=== PATIENT | female | born 1965 | race Caucasian/White ===

== ENCOUNTER 2016-06-23 07:16 | Day surgery (SDCO) | payer OTHER ==
[2016-06-23 07:57] LABS: HCT 36.8 % (37.0-47.0); HGB 12.4 g/dl (12.5-16.0); MCH 32.2 pg (25.0-31.0); MCHC 33.7 g/dL (32.0-36.0); MCV 95.6 fL (78.0-100.0); MPV 10.1 fL (6.0-9.5); RBC 3.85 M/uL (4.20-5.40); RDW 12.5 % (11.5-14.0); WBC 5.6 K/uL (4.0-10.5)
[2016-06-23 08:14] LABS: CREATININE 0.6 mg/dL (0.5-1.0); POTASSIUM 3.7 mmol/L (3.5-5.1)
[2016-06-24 06:26] LABS: HCT 31.5 % (37.0-47.0); HGB 10.4 g/dl (12.5-16.0); MCH 32.1 pg (25.0-31.0); MCV 97.2 fL (78.0-100.0); MPV 10.8 fL (6.0-9.5); RBC 3.24 M/uL (4.20-5.40); RDW 12.9 % (11.5-14.0); WBC 9.1 K/uL (4.0-10.5)
[2016-06-24] MEDS ORDERED: TOPROL XL 50 MG50 MG PO (13:49)
[2016-06-24] MEDS ORDERED: QVAR8.7 G1 INH (13:56)
[2016-06-24] MEDS ORDERED: CLARITIN10 MG PO (13:56)
[2016-06-24] MEDS ORDERED: ASPIRIN CHEWABL81 MG PO (13:57)
[2016-06-24] MEDS ORDERED: VITAMIN B-121000 MC1 PO (13:57)
[2016-06-24] MEDS ORDERED: SINGULAIR10 MG PO (13:59)
[2016-06-24] MEDS ORDERED: VITAMIN D1000 UNI1 PO (14:07)
[2016-06-24] MEDS ORDERED: XOPENEX INH (14:08)
[2016-06-24] MEDS ORDERED: BACLOFEN 10MG T10 MG PO (14:10)
[2016-06-24] MEDS ORDERED: COLACE100 MG PO (14:11)
[2016-06-24] MEDS ORDERED: PERCOCET 5/3251 TAB PO (14:11)
== END 2016-06-24 11:21 | disposition home or self-care (01) ==
LOC: FAS 07:16 → FMS 12:20
PROVIDERS: Anesthesiology; ADMIT Obstetrics & Gynecology
DX: N80.0 Endometriosis of uterus (principal); N72 Inflammatory disease of cervix uteri; I10 Essential (primary) hypertension; I48.0 Paroxysmal atrial fibrillation; Z88.1 Allergy status to other antibiotic agents
CPT/HCPCS: 36415; 80048; 84703; 86850; 86900; 86901; 88307; 93005; 94010; 94640; 94760; 94762; C9113; G0378; J1170; J1885; J2270; J2405; J2704; J2710; J3010

== ENCOUNTER 2016-06-30 07:56 | Inpatient (IN) | payer OTHER ==
[~2016-06-30 07:56] MED LIST: ASPIRIN CHEWABL81 MG PO; BACLOFEN 10MG T10 MG PO; CLARITIN10 MG PO; COLACE100 MG PO; PERCOCET 5/3251 TAB PO; QVAR8.7 G1 INH; SINGULAIR10 MG PO; TOPROL XL 50 MG50 MG PO; VITAMIN B-121000 MC1 PO; VITAMIN D1000 UNI1 PO; XOPENEX INH
[2016-06-30 08:50] LABS: BASOPHIL 0.2 % (0-2); HCT 40.5 % (37.0-47.0); HGB 13.8 g/dl (12.5-16.0); LYMPHOCYTE 17.8 % (15-48); MCH 32.4 pg (25.0-31.0); MCHC 34.1 g/dL (32.0-36.0); MCV 95.1 fL (78.0-100.0); MONOCYTE 11.2 % (0-12); MPV 10.3 fL (6.0-9.5); NEUTROPHIL 66.8 % (41-80); PLT 282 K/uL (150-400); RBC 4.26 M/uL (4.20-5.40); RDW 12.3 % (11.5-14.0); WBC 13.9 K/uL (4.0-10.5)
[2016-06-30 09:23] LABS: LACTIC ACID 1.9 mmol/L (0.5-2.2)
[2016-06-30 09:27] LABS: ALBUMIN 4.5 g/dL (3.5-5.0); BILIRUBIN - TOTAL 0.8 mg/dL (0.1-1.0); CREATININE 0.7 mg/dL (0.5-1.0); GLOBULIN (CALCULATION) 2.8 g/dL (2.2-4.2); POTASSIUM 4.1 mmol/L (3.5-5.1); TOTAL PROTEIN 7.3 g/dL (6.4-8.3)
[2016-06-30 11:11] LABS: BILIRUBIN NEGATIVE (NEGATIVE); BLOOD 2+ Ery/uL (NEGATIVE); CLARITY CLEAR (CLEAR); COLOR YELLOW (YELLOW); GLUCOSE (U) NORMAL (NORMAL); KETONE (U) NEGATIVE (NEGATIVE); LEUKOCYTES TRACE Leu/uL (NEGATIVE); NITRITE NEGATIVE (NEGATIVE); PROTEIN TRACE (LOW) mg/dL (NEGATIVE); UROBILINOGEN 0.2 mg/dL (0.2-1.0)
[2016-06-30 11:16] LABS: BACTERIA TRACE; MUCOUS TRACE; URINARY RBC RARE; URINARY WBC RARE
[2016-07-01 08:37] LABS: BASOPHIL 0.2 % (0-2); EOSINOPHIL 1.9 % (0-5); HCT 37.3 % (37.0-47.0); HGB 12.7 g/dl (12.5-16.0); LYMPHOCYTE 6.8 % (15-48); MCH 32.4 pg (25.0-31.0); MCV 95.2 fL (78.0-100.0); MONOCYTE 14.9 % (0-12); MPV 9.8 fL (6.0-9.5); NEUTROPHIL 76.2 % (41-80); PLT 254 K/uL (150-400); RBC 3.92 M/uL (4.20-5.40); RDW 12.9 % (11.5-14.0)
[2016-07-01 08:39] LABS: WBC 19.6 K/uL (4.0-10.5)
[2016-07-01 08:51] LABS: BILIRUBIN - TOTAL 0.8 mg/dL (0.1-1.0); CREATININE 0.7 mg/dL (0.5-1.0); GLOBULIN (CALCULATION) 2.5 g/dL (2.2-4.2); MAGNESIUM 1.7 mg/dL (1.40-2.10); TOTAL PROTEIN 5.5 g/dL (6.4-8.3)
[2016-07-02 04:43] LABS: BASOPHIL 0.1 % (0-2); EOSINOPHIL 3.8 % (0-5); HCT 31.6 % (37.0-47.0); HGB 10.6 g/dl (12.5-16.0); LYMPHOCYTE 7.3 % (15-48); MCH 32.2 pg (25.0-31.0); MCHC 33.5 g/dL (32.0-36.0); MPV 9.7 fL (6.0-9.5); NEUTROPHIL 74.8 % (41-80); PLT 202 K/uL (150-400); RBC 3.29 M/uL (4.20-5.40); RDW 12.8 % (11.5-14.0); WBC 17.1 K/uL (4.0-10.5)
[2016-07-02 05:02] LABS: CREATININE 0.7 mg/dL (0.5-1.0); MAGNESIUM 1.76 mg/dL (1.40-2.10); POTASSIUM 3.8 mmol/L (3.5-5.1)
[2016-07-03 04:33] LABS: BASOPHIL 0.1 % (0-2); EOSINOPHIL 4.9 % (0-5); HCT 31.9 % (37.0-47.0); HGB 10.7 g/dl (12.5-16.0); LYMPHOCYTE 10.9 % (15-48); MCH 32.2 pg (25.0-31.0); MCHC 33.5 g/dL (32.0-36.0); MCV 96.1 fL (78.0-100.0); MONOCYTE 11.9 % (0-12); MPV 9.8 fL (6.0-9.5); NEUTROPHIL 72.2 % (41-80); PLT 202 K/uL (150-400); RBC 3.32 M/uL (4.20-5.40); RDW 12.4 % (11.5-14.0); WBC 13.3 K/uL (4.0-10.5)
[2016-07-03 04:42] LABS: BILIRUBIN - TOTAL 0.6 mg/dL (0.1-1.0); CREATININE 0.5 mg/dL (0.5-1.0); GLOBULIN (CALCULATION) 1.8 g/dL (2.2-4.2); MAGNESIUM 1.7 mg/dL (1.40-2.10); POTASSIUM 3.2 mmol/L (3.5-5.1); TOTAL PROTEIN 4.8 g/dL (6.4-8.3)
[2016-07-04 05:53] LABS: BASOPHIL 0.2 % (0-2); EOSINOPHIL 7.4 % (0-5); HGB 10.5 g/dl (12.5-16.0); MCH 32.2 pg (25.0-31.0); MCHC 33.9 g/dL (32.0-36.0); MCV 95.1 fL (78.0-100.0); MONOCYTE 12.1 % (0-12); MPV 9.7 fL (6.0-9.5); NEUTROPHIL 65.3 % (41-80); PLT 224 K/uL (150-400); RBC 3.26 M/uL (4.20-5.40); RDW 12.2 % (11.5-14.0); WBC 9.9 K/uL (4.0-10.5)
[2016-07-04 06:13] LABS: CREATININE 0.4 mg/dL (0.5-1.0)
[2016-07-04] MEDS ORDERED: METRONIDAZOLE500 MG PO (12:47)
[2016-07-04] MEDS ORDERED: LEVAQUIN750 MG PO (12:47)
[2016-07-04] MEDS ORDERED: ZOFRAN4 MG PO (14:12)
== END 2016-07-04 12:59 | disposition home or self-care (01) | DRG 872 ==
LOC: FER 07:56 → FMS 12:59
PROVIDERS: Emergency Medicine; ADMIT Internal Medicine
DX: A41.9 Sepsis, unspecified organism (principal); I48.0 Paroxysmal atrial fibrillation; K52.9 Noninfective gastroenteritis and colitis, unspecified; Z90.710 Acquired absence of both cervix and uterus; J45.909 Unspecified asthma, uncomplicated; Z88.1 Allergy status to other antibiotic agents; Z79.82 Long term (current) use of aspirin
CPT/HCPCS: 36415; 74020; 80048; 80053; 81001; 82550; 83605; 83690; 83735; 84484; 85025; 87040; 87045; 87046; 87076; 87088; 87186; 87205; 87324; 87328; 87337; 87449; G0378; J0295; J1170; J1885; J1956; J2270; J2405; J2543; Q9967

== ENCOUNTER 2016-07-08 12:24 | Emergency (ER) | payer OTHER ==
[~2016-07-08 12:24] MED LIST changes: +LEVAQUIN750 MG PO; +METRONIDAZOLE500 MG PO; +ZOFRAN4 MG PO
[2016-07-08 13:34] LABS: BILIRUBIN 2+ mg/dL (NEGATIVE); BLOOD 1+ Ery/uL (NEGATIVE); CLARITY CLEAR (CLEAR); COLOR AMBER (YELLOW); GLUCOSE (U) NORMAL (NORMAL); KETONE (U) 1+ (SMALL) mg/dL (NEGATIVE); LEUKOCYTES TRACE Leu/uL (NEGATIVE); NITRITE POSITIVE (NEGATIVE); PROTEIN 1+ mg/dL (NEGATIVE); SPECIFIC GRAVITY >=1.030 (1.001-1.030); UROBILINOGEN 0.2 mg/dL (0.2-1.0); pH 6.5 (5.0-9.0)
[2016-07-08 13:40] LABS: BACTERIA TRACE; MUCOUS LARGE
[2016-07-08 14:51] LABS: BASOPHIL 0.2 % (0-2); EOSINOPHIL 8.4 % (0-5); HGB 12.8 g/dl (12.5-16.0); LYMPHOCYTE 13.6 % (15-48); MCH 32.2 pg (25.0-31.0); MCHC 33.7 g/dL (32.0-36.0); MCV 95.7 fL (78.0-100.0); MONOCYTE 12.8 % (0-12); MPV 10.7 fL (6.0-9.5); PLT 411 K/uL (150-400); RBC 3.97 M/uL (4.20-5.40); RDW 12.7 % (11.5-14.0); WBC 12.3 K/uL (4.0-10.5)
[2016-07-08 15:36] LABS: ALBUMIN 4.2 g/dL (3.5-5.0); BILIRUBIN - TOTAL 0.2 mg/dL (0.1-1.0); CREATININE 0.6 mg/dL (0.5-1.0); GLOBULIN (CALCULATION) 3.2 g/dL (2.2-4.2); POTASSIUM 3.6 mmol/L (3.5-5.1); TOTAL PROTEIN 7.4 g/dL (6.4-8.3)
== END 2016-07-08 17:13 | disposition home or self-care (01) ==
LOC: FER 12:24
PROVIDERS: Internal Medicine
DX: N39.0 Urinary tract infection, site not specified (principal); K52.9 Noninfective gastroenteritis and colitis, unspecified; I10 Essential (primary) hypertension; J45.909 Unspecified asthma, uncomplicated; Z88.0 Allergy status to penicillin; Z79.82 Long term (current) use of aspirin; Z79.899 Other long term (current) drug therapy; Z79.51 Long term (current) use of inhaled steroids; Z90.710 Acquired absence of both cervix and uterus
CPT/HCPCS: 36415; 80053; 81001; 83690; 85025; J1170; J2405

== ENCOUNTER 2020-08-07 11:19 | Emergency (ER) | payer OTHER ==
[2020-08-07 12:42] LABS: BASOPHIL 0.3 % (0-2); EOSINOPHIL 1.8 % (0-5); HCT 37.2 % (37.0-47.0); HGB 12.3 g/dl (12.5-16.0); LYMPHOCYTE 14.5 % (15-48); MCH 32.9 pg (25.0-31.0); MCHC 33.1 g/dL (32.0-36.0); MCV 99.5 fL (78.0-100.0); MPV 10.3 fL (6.0-9.5); NEUTROPHIL 74.1 % (41-80); NRBC 0; PLT 214 K/uL (150-400); RBC 3.74 M/uL (4.20-5.40); WBC 9.8 K/uL (4.0-10.5)
[2020-08-07 12:49] LABS: PTT 30.7 SECONDS (22.2-34.7)
[2020-08-07 12:50] LABS: D-DIMER 0.96 ug/mLFEU (0.00-0.41); INR 0.97 (0.9-1.2); PROTHROMBIN TIME 12.2 SECONDS (11.4-13.6)
[2020-08-07 12:55] LABS: ALBUMIN 3.4 g/dL (3.4-5.0); BILIRUBIN - TOTAL 0.4 mg/dL (0.2-1.0); BUN/CREAT RATIO (CALC) 15.5 RATIO; CREATININE 0.84 mg/dL (0.51-0.95); GLOBULIN (CALCULATION) 2.9 g/dL; MAGNESIUM 1.9 mg/dL (1.8-2.4); POTASSIUM 3.6 mmol/L (3.5-5.1); TOTAL PROTEIN 6.3 g/dL (6.4-8.2)
[2020-08-07 13:04] LABS: PRO-BNP 123 pg/mL (<125)
[2020-08-07] MEDS ORDERED: NEURONTIN300 MG PO (15:03)
== END 2020-08-07 15:57 | disposition home or self-care (01) ==
LOC: FER 11:19
PROVIDERS: Emergency Medicine
DX: G50.0 Trigeminal neuralgia (principal); R06.02 Shortness of breath; I48.91 Unspecified atrial fibrillation; J45.909 Unspecified asthma, uncomplicated; Z88.1 Allergy status to other antibiotic agents; Z88.5 Allergy status to narcotic agent; Z20.822 Contact with and (suspected) exposure to COVID-19
CPT/HCPCS: 36415; 70450; 71275; 80053; 83735; 83880; 84484; 85025; 85379; 85610; 85730; Q9967; U0002

== ENCOUNTER 2020-12-11 10:46 | Inpatient (IN) | payer OTHER ==
[~2020-12-11] VITALS: Ht 172.7 cm; Wt 65.8 kg
[~2020-12-11 10:46] MED LIST changes: +NEURONTIN300 MG PO
[2020-12-11 12:03] LABS: BASOPHIL 0.2 % (0-2); EOSINOPHIL 0 % (0-5); HCT 42.7 % (37.0-47.0); HGB 13.9 g/dl (12.5-16.0); LYMPHOCYTE 14.2 % (15-48); MCH 30.8 pg (25.0-31.0); MCHC 32.6 g/dL (32.0-36.0); MCV 94.5 fL (78.0-100.0); MONOCYTE 7.2 % (0-12); MPV 11.2 fL (6.0-9.5); NEUTROPHIL 78.1 % (41-80); NRBC 0; PLT 100 K/uL (150-400); RBC 4.52 M/uL (4.20-5.40); RDW 12.9 % (11.5-14.0); WBC 6.3 K/uL (4.0-10.5)
[2020-12-11 12:44] LABS: LACTIC ACID 1.3 mmol/L (0.4-1.9)
[2020-12-11 12:53] LABS: IRON % SATURATION 9.4 %SAT (20-50)
[2020-12-11 12:56] LABS: PRO-BNP 82 pg/mL (<125)
[2020-12-11 12:59] LABS: ALBUMIN 3.4 g/dL (3.4-5.0); BILIRUBIN - TOTAL 0.3 mg/dL (0.2-1.0); BUN/CREAT RATIO (CALC) 20.6 RATIO; C-REACTIVE PROTEIN 5.3 mg/dL (<=0.90); CREATININE 0.97 mg/dL (0.51-0.95); GLOBULIN (CALCULATION) 4.3 g/dL; MAGNESIUM 2.2 mg/dL (1.8-2.4); POTASSIUM 3.7 mmol/L (3.5-5.1); TOTAL PROTEIN 7.7 g/dL (6.4-8.2)
[2020-12-11] MEDS ORDERED: ESTRACE1 MG PO (16:31)
[2020-12-11] MEDS ORDERED: TOPAMAX25 MG PO (16:33)
[2020-12-11] MEDS ORDERED: LIPITOR20 MG PO (16:33)
[2020-12-11] MEDS ORDERED: TRELEGY ELLIPT1 EACH INH (16:35)
[2020-12-11] MEDS ORDERED: 24HR ALLERGY REL5 MG PO (16:35)
[2020-12-11] MEDS ORDERED: FOSAMAX70 MG PO (16:36)
[2020-12-11] MEDS ORDERED: [UNRECOGNIZED DRUG - OTHER] PO (16:37)
[2020-12-11] MEDS ORDERED: OS-CAL500 MG PO (16:37)
[2020-12-11] MEDS ORDERED: COQ-10100 MG PO (16:39)
[2020-12-11] MEDS ORDERED: VITAMIN B-121000 MC1 PO (16:39)
[2020-12-11] MEDS ORDERED: VITAMIN E400 UNI2 PO (16:40)
[2020-12-11] MEDS ORDERED: VITAMIN D31250 MC1 PO (16:41)
[2020-12-11] MEDS ORDERED: MELATONIN5 M2 PO (16:42)
[2020-12-11] MEDS ORDERED: BIOTIN5 MG PO (16:42)
[2020-12-11] MEDS ORDERED: AZELASTINE205.5 MCG/ INH (16:43)
[2020-12-11] MEDS ORDERED: COLLAGEN POWDER TOP (16:43)
[2020-12-11] MEDS ORDERED: MIRALAX17 GM PO (16:44)
[2020-12-11] MEDS ORDERED: FLONASE ALLER15.8 ML INH (16:44)
[2020-12-11 23:28] LABS: BILIRUBIN NEGATIVE (NEGATIVE); BLOOD NEGATIVE Ery/uL (NEGATIVE); CLARITY CLEAR (CLEAR); COLOR YELLOW (YELLOW); GLUCOSE (U) NORMAL (NORMAL); LEUKOCYTES NEGATIVE Leu/uL (NEGATIVE); NITRITE NEGATIVE (NEGATIVE); PROTEIN TRACE (LOW) mg/dL (NEGATIVE); SPECIFIC GRAVITY 1.025 (1.001-1.030); UROBILINOGEN 0.2 mg/dL (0.2-1.0)
[2020-12-11 23:39] LABS: BACTERIA 1+; CALCIUM OXALATE CRYSTALS TRACE; URINARY WBC RARE
[2020-12-12 07:41] LABS: BASOPHIL 0 % (0-2); EOSINOPHIL 0 % (0-5); HCT 38.9 % (37.0-47.0); HGB 12.2 g/dl (12.5-16.0); LYMPHOCYTE 26.9 % (15-48); MCH 30.7 pg (25.0-31.0); MCHC 31.4 g/dL (32.0-36.0); MONOCYTE 14.9 % (0-12); MPV 11.1 fL (6.0-9.5); NEUTROPHIL 57.8 % (41-80); NRBC 0; PLT 84 K/uL (150-400); RBC 3.97 M/uL (4.20-5.40); RDW 12.5 % (11.5-14.0); WBC 2.5 K/uL (4.0-10.5)
[2020-12-12 07:48] LABS: ALBUMIN 2.4 g/dL (3.4-5.0); BILIRUBIN - TOTAL 0.2 mg/dL (0.2-1.0); BUN/CREAT RATIO (CALC) 26.8 RATIO; C-REACTIVE PROTEIN 3.9 mg/dL (<=0.90); CREATININE 0.56 mg/dL (0.51-0.95); GLOBULIN (CALCULATION) 3.6 g/dL; POTASSIUM 3.5 mmol/L (3.5-5.1)
[2020-12-12 13:40] LABS: HCT 38.5 % (37.0-47.0); HGB 12.4 g/dl (12.5-16.0); MCH 30.6 pg (25.0-31.0); MCHC 32.2 g/dL (32.0-36.0); MCV 95.1 fL (78.0-100.0); MPV 11.3 fL (6.0-9.5); RBC 4.05 M/uL (4.20-5.40); RDW 12.5 % (11.5-14.0)
[2020-12-12 13:48] LABS: WBC 6.6 K/uL (4.0-10.5)
[2020-12-13 06:13] LABS: BASOPHIL 0 % (0-2); EOSINOPHIL 0 % (0-5); HCT 34.9 % (37.0-47.0); HGB 11.5 g/dl (12.5-16.0); LYMPHOCYTE 16.5 % (15-48); MCH 30.7 pg (25.0-31.0); MCV 93.1 fL (78.0-100.0); MONOCYTE 11.4 % (0-12); MPV 10.9 fL (6.0-9.5); NEUTROPHIL 71.6 % (41-80); NRBC 0; PLT 109 K/uL (150-400); RBC 3.75 M/uL (4.20-5.40); RDW 12.5 % (11.5-14.0); WBC 5.9 K/uL (4.0-10.5)
[2020-12-13 07:05] LABS: BUN/CREAT RATIO (CALC) 24.1 RATIO; CREATININE 0.54 mg/dL (0.51-0.95); POTASSIUM 3.4 mmol/L (3.5-5.1)
[2020-12-14 06:24] LABS: BASOPHIL 0.1 % (0-2); EOSINOPHIL 0 % (0-5); HCT 38.7 % (37.0-47.0); HGB 12.8 g/dl (12.5-16.0); LYMPHOCYTE 11.9 % (15-48); MCHC 33.1 g/dL (32.0-36.0); MCV 93.7 fL (78.0-100.0); MPV 10.7 fL (6.0-9.5); NEUTROPHIL 79.5 % (41-80); NRBC 0; PLT 145 K/uL (150-400); RBC 4.13 M/uL (4.20-5.40); RDW 12.5 % (11.5-14.0); WBC 8.6 K/uL (4.0-10.5)
[2020-12-14 07:08] LABS: BUN/CREAT RATIO (CALC) 21.3 RATIO; CREATININE 0.47 mg/dL (0.51-0.95); MAGNESIUM 1.9 mg/dL (1.8-2.4); POTASSIUM 3.4 mmol/L (3.5-5.1)
[2020-12-15 04:37] LABS: BASOPHIL 0 % (0-2); EOSINOPHIL 0 % (0-5); HCT 36.1 % (37.0-47.0); HGB 12.1 g/dl (12.5-16.0); LYMPHOCYTE 4.5 % (15-48); MCH 30.7 pg (25.0-31.0); MCHC 33.5 g/dL (32.0-36.0); MCV 91.6 fL (78.0-100.0); MONOCYTE 7.1 % (0-12); MPV 10.7 fL (6.0-9.5); NEUTROPHIL 87.9 % (41-80); NRBC 0; PLT 135 K/uL (150-400); RBC 3.94 M/uL (4.20-5.40); RDW 12.3 % (11.5-14.0); WBC 5.8 K/uL (4.0-10.5)
[2020-12-15 04:57] LABS: CREATININE 0.41 mg/dL (0.51-0.95); POTASSIUM 3.6 mmol/L (3.5-5.1)
--- NOTE | 2020-12-16 13:43 | NUR ---
12/16/20 A referral was made to [facility] home 02. Report given to Gertrude, visiting housekeeper.
[2020-12-16] MEDS ORDERED: ATROVENT HFA12.9 GM INH (15:24)
[2020-12-16] MEDS ORDERED: DIAZEPAM 5MG TAB5 MG PO (15:24)
[2020-12-16] MEDS ORDERED: PROVENTIL HFA6.7 GM INH (15:24)
[2020-12-16] MEDS ORDERED: DEXAMETHASONE 2M2 MG PO (15:30)
== END 2020-12-16 16:05 | disposition home or self-care (01) | DRG 871 ==
LOC: FER 10:46 → FMS 14:55
PROVIDERS: Emergency Medicine; Nurse Practitioner; ADMIT Internal Medicine
PROC: XW033E5 Introduction of Remdesivir Anti-infective into Peripheral Vein, Percutaneous Approach, New Technology Group 5 (ICD-10-PCS; principal; 2020-12-11)
PROC: 8E0ZXY6 Isolation (ICD-10-PCS; 2020-12-11)
PROC: XW0DXM6 Introduction of Baricitinib into Mouth and Pharynx, External Approach, New Technology Group 6 (ICD-10-PCS; 2020-12-12)
DX: A41.89 Other specified sepsis (principal); U07.1 COVID-19; J96.01 Acute respiratory failure with hypoxia; J12.82 Pneumonia due to coronavirus disease 2019; M31.7 Microscopic polyangiitis; N17.9 Acute kidney failure, unspecified; F41.9 Anxiety disorder, unspecified; J45.909 Unspecified asthma, uncomplicated; I48.0 Paroxysmal atrial fibrillation; G54.0 Brachial plexus disorders; G50.0 Trigeminal neuralgia; M19.90 Unspecified osteoarthritis, unspecified site; Z90.710 Acquired absence of both cervix and uterus; Z90.89 Acquired absence of other organs; Z85.828 Personal history of other malignant neoplasm of skin; Z88.1 Allergy status to other antibiotic agents; Z88.6 Allergy status to analgesic agent; Z79.82 Long term (current) use of aspirin; Z79.51 Long term (current) use of inhaled steroids; Z79.899 Other long term (current) drug therapy
CPT/HCPCS: 36415; 36600; 71045; 80048; 80053; 81001; 82728; 82803; 83540; 83550; 83605; 83615; 83735; 83880; 84145; 84484; 85025; 86140; 93005; 94010; 94640; 94664; 94667; 94668; 94760; C9399; J0456; J0696; J1100; J1650; J1885; J2405; J7030; J7040; J7050; U0002

== ENCOUNTER 2020-12-17 05:08 | Inpatient (IN) | payer OTHER ==
[~2020-12-17] VITALS: Ht 165.1 cm; Wt 74.6 kg
[~2020-12-17 05:08] MED LIST changes: +24HR ALLERGY REL5 MG PO; +ATROVENT HFA12.9 GM INH; +AZELASTINE205.5 MCG/ INH; +BIOTIN5 MG PO; +COLLAGEN POWDER TOP; +COQ-10100 MG PO; +DEXAMETHASONE 2M2 MG PO; +DIAZEPAM 5MG TAB5 MG PO; +ESTRACE1 MG PO; +FLONASE ALLER15.8 ML INH; +FOSAMAX70 MG PO; +LIPITOR20 MG PO; +MELATONIN5 M2 PO; +MIRALAX17 GM PO; +OS-CAL500 MG PO; +PROVENTIL HFA6.7 GM INH; +TOPAMAX25 MG PO; +TRELEGY ELLIPT1 EACH INH; +VITAMIN D31250 MC1 PO; +VITAMIN E400 UNI2 PO; +[UNRECOGNIZED DRUG - OTHER] PO
[2020-12-17 05:55] LABS: BASOPHIL 0.1 % (0-2); EOSINOPHIL 0 % (0-5); HCT 38.4 % (37.0-47.0); HGB 13.3 g/dl (12.5-16.0); LYMPHOCYTE 2.6 % (15-48); MCH 30.9 pg (25.0-31.0); MCHC 34.6 g/dL (32.0-36.0); MCV 89.3 fL (78.0-100.0); MONOCYTE 3.8 % (0-12); MPV 10.5 fL (6.0-9.5); NRBC 0; PLT 194 K/uL (150-400); RDW 12.4 % (11.5-14.0); WBC 14.3 K/uL (4.0-10.5)
[2020-12-17 05:58] LABS: NEUTROPHIL 92.8 % (41-80)
[2020-12-17 06:00] LABS: INR 1.87 (0.9-1.2); PROTHROMBIN TIME 20.7 SECONDS (11.8-13.4); PTT 30.9 SECONDS (24.4-34.7)
[2020-12-17 06:18] LABS: BILIRUBIN NEGATIVE (NEGATIVE); BLOOD 2+ Ery/uL (NEGATIVE); CLARITY CLEAR (CLEAR); COLOR YELLOW (YELLOW); GLUCOSE (U) NORMAL (NORMAL); LEUKOCYTES NEGATIVE Leu/uL (NEGATIVE); NITRITE NEGATIVE (NEGATIVE); PROTEIN 2+ mg/dL (NEGATIVE); SPECIFIC GRAVITY 1.025 (1.001-1.030); UROBILINOGEN 0.2 mg/dL (0.2-1.0)
[2020-12-17 06:26] LABS: BACTERIA 2+; MUCOUS TRACE
[2020-12-17 06:27] LABS: ALBUMIN 2.8 g/dL (3.4-5.0); BILIRUBIN - TOTAL 0.6 mg/dL (0.2-1.0); BUN/CREAT RATIO (CALC) 45.8 RATIO; C-REACTIVE PROTEIN 0.8 mg/dL (<=0.90); CREATININE 0.48 mg/dL (0.51-0.95); GLOBULIN (CALCULATION) 3.8 g/dL; MAGNESIUM 2.1 mg/dL (1.8-2.4); POTASSIUM 2.8 mmol/L (3.5-5.1); TOTAL PROTEIN 6.6 g/dL (6.4-8.2)
[2020-12-17 06:57] LABS: LACTIC ACID 1.7 mmol/L (0.4-1.9)
[2020-12-17 08:23] LABS: D-DIMER > 20.00 ug/mLFEU (0.00-0.41)
[2020-12-18 04:10] LABS: BASOPHIL 0.1 % (0-2); EOSINOPHIL 0 % (0-5); HCT 32.8 % (37.0-47.0); HGB 11.1 g/dl (12.5-16.0); LYMPHOCYTE 1.8 % (15-48); MCH 30.6 pg (25.0-31.0); MCHC 33.8 g/dL (32.0-36.0); MCV 90.4 fL (78.0-100.0); MONOCYTE 3.9 % (0-12); MPV 10.6 fL (6.0-9.5); NEUTROPHIL 93.2 % (41-80); NRBC 0; PLT 100 K/uL (150-400); RBC 3.63 M/uL (4.20-5.40); RDW 13.1 % (11.5-14.0)
[2020-12-18 05:17] LABS: ALBUMIN 2.2 g/dL (3.4-5.0); BILIRUBIN - TOTAL 1.1 mg/dL (0.2-1.0); BUN/CREAT RATIO (CALC) 24.6 RATIO; CREATININE 1.38 mg/dL (0.51-0.95); GLOBULIN (CALCULATION) 2.7 g/dL; POTASSIUM 3.7 mmol/L (3.5-5.1); TOTAL PROTEIN 4.9 g/dL (6.4-8.2)
[2020-12-18 10:36] LABS: BASOPHIL 0.1 % (0-2); EOSINOPHIL 0 % (0-5); HCT 35.1 % (37.0-47.0); HGB 11.8 g/dl (12.5-16.0); LYMPHOCYTE 2.9 % (15-48); MCH 30.5 pg (25.0-31.0); MCHC 33.6 g/dL (32.0-36.0); MCV 90.7 fL (78.0-100.0); MONOCYTE 3.3 % (0-12); MPV 11.1 fL (6.0-9.5); NEUTROPHIL 92.5 % (41-80); NRBC 0; PLT 98 K/uL (150-400); RBC 3.87 M/uL (4.20-5.40); RDW 13.4 % (11.5-14.0)
[2020-12-18 10:45] LABS: BUN/CREAT RATIO (CALC) 24.5 RATIO; CREATININE 1.59 mg/dL (0.51-0.95); POTASSIUM 3.5 mmol/L (3.5-5.1)
[2020-12-18 10:56] LABS: WBC 18.5 K/uL (4.0-10.5)
[2020-12-18 11:17] LABS: LACTIC ACID 0.9 mmol/L (0.4-1.9)
--- NOTE | 2020-12-18 18:41 | NUR ---
AT 1015 PT HEART RATE BEGAN TO INCREASE FROM 120'S TO THE 150'S GETTING HIGH AT [address] RITCHIE NOTIFED EKG WAS ORDERED 1023 PROPOFOL WAS INCREASED TO 50MCG ERMA ORDERED FOR 6MG OF ADENOSINE AT 1031 PT HEART RATE SLIGHTLY IMPROVED TO 130'S FOR A SHORT PERIOD OF TIME HEART RATE DID INCREASE BACK TO 150'S 5MG IV METOPROLOL WAS GIVEN CARDIOLOGY WAS CONSULTED ORDERED FOR 0.25 OF DIGOXIN GIVEN AT 1255 AND AN AMIODORONE DRIP TO BE STARTED WITH AT 150MG BOLUS AND THEN A DRIP WAS STARTED AT 1259 PT BLOOD PRESSURE DECREASED DOWN TO 64/38 AND LEVOPHED WAS STARTED AT 4MCG 1235 PRESSURE SLIGHTLY INCREASED BUT MAP WAS STILL LESS THAN 65 LEVOPHED INCREASED TO 6MCG AT 1253
[2020-12-19 04:14] LABS: BASOPHIL 0.2 % (0-2); EOSINOPHIL 0 % (0-5); HCT 34.8 % (37.0-47.0); HGB 11.6 g/dl (12.5-16.0); LYMPHOCYTE 2.5 % (15-48); MCH 30.5 pg (25.0-31.0); MCHC 33.3 g/dL (32.0-36.0); MCV 91.6 fL (78.0-100.0); MONOCYTE 2.1 % (0-12); MPV 11.6 fL (6.0-9.5); NRBC 0; PLT 106 K/uL (150-400); RDW 13.8 % (11.5-14.0); WBC 22.3 K/uL (4.0-10.5)
[2020-12-19 04:15] LABS: NEUTROPHIL 93.7 % (41-80)
[2020-12-19 04:39] LABS: BUN/CREAT RATIO (CALC) 17.3 RATIO; CREATININE 2.54 mg/dL (0.51-0.95); POTASSIUM 3.6 mmol/L (3.5-5.1)
[2020-12-19 09:38] LABS: BILIRUBIN - DIRECT 0.8 mg/dL (0.00-0.20); BILIRUBIN - TOTAL 1.1 mg/dL (0.2-1.0); GLOBULIN (CALCULATION) 3.3 g/dL; TOTAL PROTEIN 5.3 g/dL (6.4-8.2)
[2020-12-19 14:42] LABS: BUN/CREAT RATIO (CALC) 15.8 RATIO; CREATININE 3.03 mg/dL (0.51-0.95); POTASSIUM 4.2 mmol/L (3.5-5.1)
--- NOTE | 2020-12-20 03:51 | NUR ---
2350 Called GONZALEZ to inform her pt urinary output is not sufficient. That her output has been low. RESIDENTIAL TREATMENT COUNSELOR states she will order IVF.
--- NOTE | 2020-12-20 04:27 | NUR ---
Notified [employer] EX[employer] that pt still with low urine output after bolus.
[2020-12-20 04:37] LABS: BASOPHIL 0.2 % (0-2); EOSINOPHIL 0 % (0-5); HCT 33.1 % (37.0-47.0); HGB 11.1 g/dl (12.5-16.0); LYMPHOCYTE 2.2 % (15-48); MCH 30.4 pg (25.0-31.0); MCHC 33.5 g/dL (32.0-36.0); MCV 90.7 fL (78.0-100.0); MONOCYTE 3.8 % (0-12); MPV 11.9 fL (6.0-9.5); NEUTROPHIL 91.2 % (41-80); NRBC 0.1; PLT 112 K/uL (150-400); RBC 3.65 M/uL (4.20-5.40); RDW 14.2 % (11.5-14.0)
[2020-12-20 04:47] LABS: WBC 23.5 K/uL (4.0-10.5)
[2020-12-20 04:49] LABS: ALBUMIN 1.8 g/dL (3.4-5.0); BILIRUBIN - TOTAL 0.8 mg/dL (0.2-1.0); BUN/CREAT RATIO (CALC) 15.3 RATIO; C-REACTIVE PROTEIN 12.8 mg/dL (<=0.90); CREATININE 3.73 mg/dL (0.51-0.95); GLOBULIN (CALCULATION) 3.3 g/dL; POTASSIUM 4.1 mmol/L (3.5-5.1); TOTAL PROTEIN 5.1 g/dL (6.4-8.2)
[2020-12-21 04:36] LABS: BASOPHIL 0.2 % (0-2); EOSINOPHIL 0 % (0-5); HCT 27.4 % (37.0-47.0); HGB 9.4 g/dl (12.5-16.0); MCH 30.7 pg (25.0-31.0); MCHC 34.3 g/dL (32.0-36.0); MCV 89.5 fL (78.0-100.0); MONOCYTE 4.9 % (0-12); MPV 12.3 fL (6.0-9.5); NRBC 0.1; RBC 3.06 M/uL (4.20-5.40); RDW 13.9 % (11.5-14.0); WBC 27.7 K/uL (4.0-10.5)
[2020-12-21 04:43] LABS: NEUTROPHIL 87.1 % (41-80); PLT 85 K/uL (150-400)
[2020-12-21 04:54] LABS: BILIRUBIN - TOTAL 1.7 mg/dL (0.2-1.0); BUN/CREAT RATIO (CALC) 15.1 RATIO; CREATININE 4.11 mg/dL (0.51-0.95); GLOBULIN (CALCULATION) 2.9 g/dL; MAGNESIUM 1.7 mg/dL (1.8-2.4); PHOSPHORUS 3.5 mg/dL (2.6-4.7); POTASSIUM 3.7 mmol/L (3.5-5.1); TOTAL PROTEIN 4.9 g/dL (6.4-8.2)
--- NOTE | 2020-12-21 05:03 | NUR ---
NOTIFIED CERTIFIED PROFESSIONAL CONTROLLER PT CALCIUM LEVEL 5.9.
[2020-12-21 09:32] LABS: BUN/CREAT RATIO (CALC) 15.6 RATIO; CREATININE 4.24 mg/dL (0.51-0.95); POTASSIUM 3.6 mmol/L (3.5-5.1)
[2020-12-21 13:34] LABS: CREATININE 4.31 mg/dL (0.51-0.95); MAGNESIUM 1.8 mg/dL (1.8-2.4); POTASSIUM 4.1 mmol/L (3.5-5.1)
[2020-12-21 14:15] LABS: BILIRUBIN NEGATIVE (NEGATIVE); BLOOD 3+ Ery/uL (NEGATIVE); CLARITY CLEAR (CLEAR); COLOR YELLOW (YELLOW); GLUCOSE (U) TRACE mg/dL (NORMAL); LEUKOCYTES NEGATIVE Leu/uL (NEGATIVE); NITRITE NEGATIVE (NEGATIVE); PROTEIN 2+ mg/dL (NEGATIVE); SPECIFIC GRAVITY 1.025 (1.001-1.030); UROBILINOGEN 0.2 mg/dL (0.2-1.0)
[2020-12-21 14:29] LABS: AMORPHOUS URATES CRYSTALS LARGE; BACTERIA 2+
[2020-12-21 14:30] LABS: GRANULAR CASTS MODERATE
[2020-12-21 17:20] LABS: BUN/CREAT RATIO (CALC) 16.4 RATIO; CREATININE 4.33 mg/dL (0.51-0.95); POTASSIUM 4.2 mmol/L (3.5-5.1)
--- NOTE | 2020-12-21 23:31 | NUR ---
EMS picked patient up and transferred to [facility] in [place]. Spouse was contacted prior to transport regading where and when patient was being transported, spouse was agreeeable to transfer. All care was taken to transfer patient safely and patient left on stretcher with EMS.
== END 2020-12-21 23:24 | disposition other institution (70) | DRG 870 ==
LOC: FER 05:08 → FTCU 12:49
PROVIDERS: Emergency Medicine; ADMIT Family Medicine
PROC: 8E0ZXY6 Isolation (ICD-10-PCS; principal; 2020-12-17)
PROC: 5A1955Z Respiratory Ventilation, Greater than 96 Consecutive Hours (ICD-10-PCS; 2020-12-17)
PROC: XW033E5 Introduction of Remdesivir Anti-infective into Peripheral Vein, Percutaneous Approach, New Technology Group 5 (ICD-10-PCS; 2020-12-17)
PROC: 0BH17EZ Insertion of Endotracheal Airway into Trachea, Via Natural or Artificial Opening (ICD-10-PCS; 2020-12-17)
PROC: 02HV33Z Insertion of Infusion Device into Superior Vena Cava, Percutaneous Approach (ICD-10-PCS; 2020-12-17)
PROC: 3E043XZ Introduction of Vasopressor into Central Vein, Percutaneous Approach (ICD-10-PCS; 2020-12-18)
DX: A41.89 Other specified sepsis (principal); U07.1 COVID-19; J12.82 Pneumonia due to coronavirus disease 2019; J96.01 Acute respiratory failure with hypoxia; R65.21 Severe sepsis with septic shock; I21.4 Non-ST elevation (NSTEMI) myocardial infarction; N17.0 Acute kidney failure with tubular necrosis; E87.2 Acidosis; M31.7 Microscopic polyangiitis; E87.1 Hypo-osmolality and hyponatremia; E87.70 Fluid overload, unspecified; E87.6 Hypokalemia; I48.91 Unspecified atrial fibrillation; J45.909 Unspecified asthma, uncomplicated; E83.51 Hypocalcemia; E83.42 Hypomagnesemia; K59.03 Drug induced constipation; Z78.1 Physical restraint status; Z90.710 Acquired absence of both cervix and uterus; Z90.89 Acquired absence of other organs; Z88.6 Allergy status to analgesic agent; Z88.1 Allergy status to other antibiotic agents; Z79.82 Long term (current) use of aspirin; Z79.899 Other long term (current) drug therapy
CPT/HCPCS: 36415; 36600; 71045; 71250; 80048; 80053; 80076; 81001; 82330; 82436; 82728; 82803; 82962; 83605; 83615; 83735; 83880; 83970; 84100; 84133; 84145; 84300; 84484; 85025; 85379; 85610; 85730; 86140; 87040; 93005; 94002; 94760; 94762; 96374; 96375; C9113; C9399; J0153; J0282; J0610; J0692; J1100; J1160; J1265; J1650; J1940; J2060; J2250; J2543; J2704; J3010; J3370; J3475; J3480; J7030; J7040; J7050; J7060; J7120; J7121; P9046